=== PATIENT | female | born 1950 | race Caucasian/White ===

== ENCOUNTER 2021-02-06 11:06 | Emergency (ER) | payer MEDICARE, OTHER ==
[~2021-02-06] VITALS: Ht 167.6 cm; Wt 86.2 kg
[~2021-02-06 11:06] MED LIST: ASPI81CH PO; ATOR40TA PO; BUPR150ER PO; Budeprion Xl300 MG PO; CARV25 PO; CARV3.125 PO; CLON2 PO; ENOX120I SQ; FURO20 PO; Ferosul325 MG PO; HYDR1TAB94 PO; LISI5 PO; LOSA25 PO; LOSA50 PO; LOVA40; Plavix75 MG PO; VALS80 PO; VENL75ER PO; WARF5 PO
[2021-02-09] MEDS ORDERED: METO25ER PO (13:16)
[2021-02-09] MEDS ORDERED: LEVSOD25 PO (13:16)
[2021-02-09] MEDS ORDERED: Mirapex1 MG PO (13:22)
[2021-02-09] MEDS ORDERED: METF500C PO (13:22)
[2021-03-20] MEDS ORDERED: BUPR150ER PO (13:44)
[2021-03-20] MEDS ORDERED: VITAMIN D325 MC3 PO (13:44)
[2021-03-20] MEDS ORDERED: ATOR80 PO (13:44)
[2021-03-20] MEDS ORDERED: FERROUS SULFAT325 M3 PO (13:45)
[2021-03-20] MEDS ORDERED: FURO20 PO (13:45)
[2021-03-20] MEDS ORDERED: CLON1 PO (13:45)
[2021-03-20] MEDS ORDERED: CLOP75 PO (13:45)
[2021-03-20] MEDS ORDERED: LEVSOD25 PO (13:45)
[2021-03-20] MEDS ORDERED: Mirapex1 MG PO (13:46)
[2021-03-20] MEDS ORDERED: METO25ER PO (13:46)
== END 2021-02-06 13:33 | disposition home or self-care (01) ==
LOC: ER 11:06
DX: S01.81XA Laceration without foreign body of other part of head, initial encounter (principal); Z79.899 Other long term (current) drug therapy; Z79.02 Long term (current) use of antithrombotics/antiplatelets; Z91.09 Other allergy status, other than to drugs and biological substances; Z88.5 Allergy status to narcotic agent; Z88.8 Allergy status to other drugs, medicaments and biological substances; W01.198A Fall on same level from slipping, tripping and stumbling with subsequent striking against other object, initial encounter
CPT/HCPCS: 12011; 70450; 99283-25; A9270

== ENCOUNTER 2021-03-28 13:47 | Day surgery (SDC) | payer MEDICARE, OTHER ==
[~2021-03-28] VITALS: Ht 162.6 cm; Wt 86.7 kg
[~2021-03-28 13:47] MED LIST changes: +ATOR80 PO; +CLON1 PO; +CLOP75 PO; +FERROUS SULFAT325 M3 PO; +LEVSOD25 PO; +METF500C PO; +METO25ER PO; +Mirapex1 MG PO; +VITAMIN D325 MC3 PO
== END 2021-03-28 13:55 | disposition home or self-care (01) ==
LOC: ORSCSDS 13:47
PROVIDERS: Surgery
PROC: 0DBL8ZX Excision of Transverse Colon, Via Natural or Artificial Opening Endoscopic, Diagnostic (ICD-10-PCS; principal; 2021-03-28 13:00)
PROC: 0DBK8ZX Excision of Ascending Colon, Via Natural or Artificial Opening Endoscopic, Diagnostic (ICD-10-PCS; principal; 2021-03-28 13:00)
PROC: 0DBN8ZX Excision of Sigmoid Colon, Via Natural or Artificial Opening Endoscopic, Diagnostic (ICD-10-PCS; principal; 2021-03-28 13:00)
DX: D50.9 Iron deficiency anemia, unspecified (principal); K21.9 Gastro-esophageal reflux disease without esophagitis; D12.2 Benign neoplasm of ascending colon; D12.3 Benign neoplasm of transverse colon; D12.5 Benign neoplasm of sigmoid colon; Z86.010 Personal history of colon polyps; K44.9 Diaphragmatic hernia without obstruction or gangrene; K57.30 Diverticulosis of large intestine without perforation or abscess without bleeding; I51.81 Takotsubo syndrome; I10 Essential (primary) hypertension; E78.5 Hyperlipidemia, unspecified; Z86.73 Personal history of transient ischemic attack (TIA), and cerebral infarction without residual deficits; E03.9 Hypothyroidism, unspecified; N18.30 Chronic kidney disease, stage 3 unspecified; Z79.899 Other long term (current) drug therapy
CPT/HCPCS: 88305; 88312; 88342; J2704; J7120

== ENCOUNTER 2021-05-17 00:23 | Day surgery (SDC) | payer MEDICARE, OTHER | END 2021-05-17 23:24 | disposition home or self-care (01) | LOC: WOUND 00:23 | DX: L89.322 Pressure ulcer of left buttock, stage 2 (principal); L89.310 Pressure ulcer of right buttock, unstageable | CPT/HCPCS: A9270; G0463 ==

== ENCOUNTER 2021-05-24 01:21 | Day surgery (SDC) | payer MEDICARE, OTHER | END 2021-05-24 23:06 | disposition home or self-care (01) | LOC: WOUND 01:21 | DX: L89.311 Pressure ulcer of right buttock, stage 1 (principal) | CPT/HCPCS: A9270 ==

== ENCOUNTER 2021-06-12 02:39 | Day surgery (SDC) | payer MEDICARE, OTHER | END 2021-06-12 23:03 | disposition home or self-care (01) | LOC: WOUND 02:39 | DX: L89.312 Pressure ulcer of right buttock, stage 2 (principal); L89.322 Pressure ulcer of left buttock, stage 2 | CPT/HCPCS: A9270; G0463 ==

== ENCOUNTER 2021-06-26 05:46 | Day surgery (SDC) | payer MEDICARE, OTHER | END 2021-06-26 23:29 | disposition home or self-care (01) | LOC: WOUND 05:46 | DX: L89.312 Pressure ulcer of right buttock, stage 2 (principal); L89.322 Pressure ulcer of left buttock, stage 2 | CPT/HCPCS: G0463 ==

== ENCOUNTER 2021-07-11 03:18 | Day surgery (SDC) | payer MEDICARE, OTHER | END 2021-07-11 12:00 | disposition home or self-care (01) | LOC: WOUND 03:18 | DX: L89.312 Pressure ulcer of right buttock, stage 2 (principal) | CPT/HCPCS: G0463 ==

== ENCOUNTER 2023-03-27 15:43 | Inpatient (IN) | payer MEDICARE, OTHER ==
[~2023-03-27] VITALS: Ht 162.6 cm; Wt 70.0 kg
[2023-03-27 17:00] LABS: BASOPHILS ABSOLUTE AUTO 0.03 K/mm3 (0.00-0.23); BASOPHILS PERCENT AUTO 0 % (0-2); EOSINOPHILS ABSOLUTE AUTO 0.05 K/mm3 (0.00-0.68); EOSINOPHILS PERCENT AUTO 1 % (0-6); Hematocrit 37.1 % (33.0-51.0); Hemoglobin 12.2 g/dL (11.5-16.0); IMMATURE GRAN ABSOLUTE AUTO 0.02 K/mm3 (0.00-0.10); IMMATURE GRAN PERCENT AUTO 0 % (0-1); LYMPHOCYTES ABSOLUTE AUTO 1.02 K/mm3 (0.84-5.20); LYMPHOCYTES PERCENT AUTO 15 % (21-46); MONOCYTES ABSOLUTE AUTO 0.51 K/mm3 (0.16-1.47); MONOCYTES PERCENT AUTO 7 % (4-13); Mean Corpuscular HGB 31.4 pg (26.0-34.0); Mean Corpuscular HGB Conc 32.9 g/dL (31.5-36.5); Mean Corpuscular Volume 95 fL (80-100); Mean Platelet Volume 11.3 fL (9.1-12.4); NEUTROPHILS ABSOLUTE AUTO 5.26 K/mm3 (1.96-9.15); NEUTROPHILS PERCENT AUTO 76 % (41-73); Platelet Count 183 K/mm3 (150-400); RDW Coefficient Variation 14.2 % (11.7-14.2); RDW Standard Deviation 49.9 fL (35.1-46.3); Red Blood Cell Count 3.89 M/mm3 (3.80-5.20); White Blood Cell Count 6.89 K/mm3 (4.00-11.30)
[2023-03-27 17:16] LABS: Albumin, Blood 3.6 g/dL (3.4-5.0); Albumin/Globulin Ratio 1.1 (0.8-1.8); Bilirubin, Total 0.7 mg/dL (0.1-1.0); Bun/Creatinine Ratio 14.7 (12.0-20.0); Calcium, Blood 9.3 mg/dL (8.5-10.1); Creatinine, Blood 1.5 mg/dL (0.40-1.00); Globulin, Blood 3.3 g/dL (2.2-4.0); Potassium, Blood 3.7 mmol/L (3.5-5.5); Total Protein, Blood 6.9 g/dL (6.4-8.2)
[2023-03-27 19:36] LABS: Source, Urine Clean Catch
[2023-03-27 19:39] LABS: Bilirubin, Urine Neg (Neg); Blood, Urine 2+ (Neg); Glucose Qualitative, Urine 4+ (Neg); Ketones, Urine Neg (Neg); Leukocyte Esterase, Urine 3+ (Neg); Nitrite, Urine Neg (Neg); Protein, Urine 2+ (Neg); Urobilinogen, Urine NORM (Normal)
[2023-03-27 19:48] LABS: Appearance, Urine Hazy (Clear); Color, Urine Pale Yellow (P-Yellow)
[2023-03-27 19:50] LABS: Bacteria Mod /hpf; Hyaline Casts 0-2 /lpf (0-2); Squamous Epithelial Cells Few /hpf (Few)
[2023-03-27] MEDS ORDERED: ABILIFY MYCITE15 M2 PO (20:39)
[2023-03-27] MEDS ORDERED: Budeprion Xl300 MG PO (20:47)
[2023-03-27] MEDS ORDERED: Crestor40 MG PO (20:47)
[2023-03-27] MEDS ORDERED: FARXIGA10 MG PO (20:47)
[2023-03-27] MEDS ORDERED: Amlodipine Bes2.5 MG PO (20:47)
[2023-03-27] MEDS ORDERED: POTA10T PO (20:48)
[2023-03-27] MEDS ORDERED: LEVSOD25 PO (21:21)
[2023-03-27 21:35] VITALS: BP 134/70
[2023-03-28 04:22] VITALS: BP 96/55
--- NOTE | 2023-03-28 04:41 | NUR ---
SHIFT SUMMARY NO ACUTE CHANGES NOTED DURING SHIFT. PT ALERT AND ORIENTED, CALLS APPROPRIATELY. PT REMAISN ON RA, X 1 ASSIST. NO DEFECITS NOTED, PT STATES BACK TO BASELINE. PT PENDING MRI AND ECHO TODAY. NO C/O PAIN. WILL CONTINUE TO MONITOR. CALL LIGHT WITHIN REACH.
[2023-03-28 06:12] LABS: CHOL/HDL RATIO 1.9; Cholesterol 117 mg/dL (50-200); HDL Cholesterol 61 mg/dL (>39); LDL/HDL RATIO 0.8; Low Density Lipoprotein Chol 48 mg/dL (0-110); Triglycerides 41 mg/dL (30-160); Very Low Density Lipoprot Chol 8 mg/dL (6-32)
[2023-03-28 07:39] VITALS: BP 103/59
--- NOTE | 2023-03-28 09:00 | NUR ---
PT PLEASANT COOP A/O X3. H/R REG, NO MURMUR NOTED. PER TELE SINUS AT 69 WITH BBB AND PROLONGED QTC. SINCE ADMIT. CALLED DR FOR ORDERS - EKG ORDERED. LUNGS CLEAR, RESP EASY, UNLABORED. ON R/A. BT X4 LAST BM YEST. VOIDS 1 ASST TO BATHROOM. BED N LOW POSITION, ALL LITE IN REACH, CALLS APPRPOP PT STATES NO FLAMMABLE ITEMS IN ROOM.
[2023-03-28 14:34] LABS: Bun/Creatinine Ratio 14.7 (12.0-20.0); Calcium, Blood 9.2 mg/dL (8.5-10.1); Creatinine, Blood 1.43 mg/dL (0.40-1.00); Potassium, Blood 3.8 mmol/L (3.5-5.5)
[2023-03-28 15:30] VITALS: BP 108/55
--- NOTE | 2023-03-28 17:18 | NUR ---
PT PLEASANT TODAY. DID GO TO MRI THIS MIDDAY. DR ORDERED NEW EKG BASED ON PROLONGED QTC. NO NEW ORDERS. PENDING ECHO. PT TO STAY TONITE FOR SURE PER DR. ENGLAND. CBG THIS LUNCH WAS 155, PT DENIED INSULIN. SPOKE TO HER THIS KELLY, IS 169. SHE JUST DRANK SPECIAL COFFEE FROM [employer]. IT LOOKS LIKE SUGARY DRINK. PT AGREES GTO TAKE 1U INSULIN. STATES NOT LIKING NEEDLES. NO OTHER CONCERNS NOTED. BED IN LOW POSITION, CALL LITE IN REACH, CALLS APPROP
[2023-03-28 19:16] VITALS: BP 85/50
[2023-03-29 00:28] VITALS: BP 96/50
--- NOTE | 2023-03-29 04:17 | NUR ---
SHIFT SUMMARY PT ALERT AND ORIENTED. PT WITH INTERMITTENT CONFUSION, REDIRECTABLE. PT REMAINS ON RA, X 1 ASSIST WITH FWW TO BATHROOM. PT PENDING ECHO. EPISODE OF HYPOTENSION NOTED, HOSPITALIST NOTIFIED AND ORDERS FOR 500 ML BOLUS ORDERED. NO C/O PAIN. WILL CONTINUE TO MONITOR .CALL LIGHT WITHIN REACH.
[2023-03-29 04:24] VITALS: BP 97/57
[2023-03-29 07:42] VITALS: BP 95/50
--- NOTE | 2023-03-29 13:23 | NUR ---
ECHO IN ROOM NOW
[2023-03-29 16:34] VITALS: BP 92/58
--- NOTE | 2023-03-29 18:43 | NUR ---
ALERT AND ORIENTED, SLOW AT TIMES TO RESPOND, PATIENT TO STAY ANOTHER NIGHT AND DISCHARGE TOMORROW, CASE MANAGEMENT AND DR ENGLAND DISCUSSED CARE OPTIONS WITH PATIENT AND SON NETO, PATIENT REPORTS BEING HAPPY WITH PT/OR, ECHO WAS DONE, MAP 65, CALL LIGHT WITH IN REACH, WILL RELAY TO PM RN
[2023-03-29 19:35] VITALS: BP 90/42
--- NOTE | 2023-03-29 21:00 | NUR ---
CALLED BOBBY LOSS PREVENTION/SAFETY DISTRICT MANAGER REGARDING PTS BLOOD PRESSURE OF 90/42-MAP OF 58. PER BOBBY LOSS PREVENTION/SAFETY DISTRICT MANAGER GIVE 500ML BOLUS OF NS AND RECHECK B/P WHEN BOLUS IS COMPLETE.
[2023-03-29 22:52] VITALS: BP 96/56
[2023-03-30 03:38] VITALS: BP 107/52
--- NOTE | 2023-03-30 04:45 | NUR ---
SHIFT SUMMARY; PT WAS HYPOTENSIVE AT THE BEGINNING OF SHIFT, BUT AFTER A 1 TIME BOLUS OF 500MLS WAS ADMIISTERED THE PTS B/P CAME UP. NO OTHER ACUTE CHANGES OVERNIGHT. THE PT IS AXO X3 AND A 1 ASSIST W/ A FWW. TELE IS IN PLACE, NSR IN THE 70'S. THE PT HAS BEEN SLEEPING FOR THE MAJORITY OF THE NIGHT. THE PT DENIES ANY PAIN, SOB, CHEST PAIN/PRESSURE OR N/V. CURRENTLY THE PT IS SLEEPING IN BED WITH THE BED IN THE LOWEST POSITION AND THE CALL LIGHT AT BEDSIDE.
[2023-03-30 07:52] VITALS: BP 83/52
[2023-03-30] MEDS ORDERED: Aspir 8181 MG PO (10:23)
[2023-03-30 10:33] VITALS: BP 107/58
[2023-03-30] MEDS ORDERED: VISBIOME 112.51 EACH PO (10:38)
[2023-03-30] MEDS ORDERED: FURO20 PO (11:14)
== END 2023-03-30 14:23 | disposition home health service (06) | DRG 69 ==
LOC: ER 15:43 → MEDS 15:44
PROVIDERS: Emergency Medicine; Internal Medicine; Nurse Practitioner Acute Care; Student in an Organized Health Care Education/Training Program; ADMIT Student in an Organized Health Care Education/Training Program
DX: G45.9 Transient cerebral ischemic attack, unspecified (principal); E78.5 Hyperlipidemia, unspecified; E03.9 Hypothyroidism, unspecified; G25.81 Restless legs syndrome; I12.9 Hypertensive chronic kidney disease with stage 1 through stage 4 chronic kidney disease, or unspecified chronic kidney disease; N18.30 Chronic kidney disease, stage 3 unspecified; F03.A0 Unspecified dementia, mild, without behavioral disturbance, psychotic disturbance, mood disturbance, and anxiety; E11.22 Type 2 diabetes mellitus with diabetic chronic kidney disease; R29.6 Repeated falls; F32.A Depression, unspecified; Z88.8 Allergy status to other drugs, medicaments and biological substances; Z88.5 Allergy status to narcotic agent; Z79.899 Other long term (current) drug therapy; Z79.890 Hormone replacement therapy; Z90.89 Acquired absence of other organs; Z98.891 History of uterine scar from previous surgery; Z98.890 Other specified postprocedural states; Z79.82 Long term (current) use of aspirin; Z79.02 Long term (current) use of antithrombotics/antiplatelets
CPT/HCPCS: 36415; 70450; 70551; 71045; 80048; 80053; 80061; 81001; 82947; 83036; 83880; 84484; 85025; 87086; 93005; 93010; 93306; 93880; 97112; 97116; 97162; 97166; 97530; 97530-CQ; 97535; 99285-25; A9270; G0378; J7030; J7040

== ENCOUNTER 2024-06-14 04:59 | Emergency (ER) | payer MEDICARE, OTHER ==
[~2024-06-14] VITALS: Ht 162.6 cm; Wt 86.2 kg
[~2024-06-14 04:59] MED LIST changes: +ABILIFY MYCITE15 M2 PO; +Amlodipine Bes2.5 MG PO; +Aspir 8181 MG PO; +Crestor40 MG PO; +FARXIGA10 MG PO; +POTA10T PO; +VISBIOME 112.51 EACH PO
[2024-06-14] MEDS ORDERED: Diphth,Pertuss(Acell),Tet Vac 0.5 ML VIAL IM ONE (05:35)
[2024-06-14 06:42] VITALS: BP 110/56
== END 2024-06-14 08:30 | disposition home or self-care (01) ==
LOC: ER 04:59
DX: S01.81XA Laceration without foreign body of other part of head, initial encounter (principal); S06.0XAA Concussion with loss of consciousness status unknown, initial encounter; S81.802A Unspecified open wound, left lower leg, initial encounter; E11.22 Type 2 diabetes mellitus with diabetic chronic kidney disease; N18.30 Chronic kidney disease, stage 3 unspecified; E78.5 Hyperlipidemia, unspecified; E03.9 Hypothyroidism, unspecified; I13.10 Hypertensive heart and chronic kidney disease without heart failure, with stage 1 through stage 4 chronic kidney disease, or unspecified chronic kidney disease; G25.81 Restless legs syndrome; I42.8 Other cardiomyopathies; Z88.8 Allergy status to other drugs, medicaments and biological substances; Z88.5 Allergy status to narcotic agent; Z91.048 Other nonmedicinal substance allergy status; Z79.82 Long term (current) use of aspirin; Z79.890 Hormone replacement therapy; Z79.899 Other long term (current) drug therapy; Z79.01 Long term (current) use of anticoagulants; R44.1 Visual hallucinations; W07.XXXA Fall from chair, initial encounter; W18.30XA Fall on same level, unspecified, initial encounter
CPT/HCPCS: 12014; 70450; 80053; 85025; 90471; 90715; 99284; 99284-25

== ENCOUNTER 2024-06-22 04:01 | Day surgery (SDC) | payer MEDICARE, OTHER ==
[2024-06-22] MEDS ORDERED: Triamcinolone Acet 0.1% Cream 15 gm ONE (13:30)
== END 2024-06-23 23:14 | disposition home or self-care (01) ==
LOC: WOUND 04:01
DX: L97.822 Non-pressure chronic ulcer of other part of left lower leg with fat layer exposed (principal); S81.802D Unspecified open wound, left lower leg, subsequent encounter; I10 Essential (primary) hypertension; I73.9 Peripheral vascular disease, unspecified; I87.2 Venous insufficiency (chronic) (peripheral); Z88.5 Allergy status to narcotic agent; Z88.8 Allergy status to other drugs, medicaments and biological substances; X58.XXXD Exposure to other specified factors, subsequent encounter
CPT/HCPCS: A9270; G0463

== ENCOUNTER 2024-06-24 02:34 | Day surgery (SDC) | payer MEDICARE, OTHER ==
[2024-06-24] MEDS ORDERED: Triamcinolone Acet 0.1% Cream 15 gm ONE (12:47)
== END 2024-06-24 23:23 | disposition home or self-care (01) ==
LOC: WOUND 02:34
DX: L97.822 Non-pressure chronic ulcer of other part of left lower leg with fat layer exposed (principal); I10 Essential (primary) hypertension; I73.9 Peripheral vascular disease, unspecified; I87.2 Venous insufficiency (chronic) (peripheral)
CPT/HCPCS: A9270

== ENCOUNTER 2024-07-01 04:34 | Day surgery (SDC) | payer MEDICARE, OTHER | END 2024-07-01 23:00 | disposition home or self-care (01) | LOC: WOUND 04:34 | DX: L97.822 Non-pressure chronic ulcer of other part of left lower leg with fat layer exposed (principal); I11.0 Hypertensive heart disease with heart failure; I50.9 Heart failure, unspecified; I73.9 Peripheral vascular disease, unspecified; I87.2 Venous insufficiency (chronic) (peripheral) | CPT/HCPCS: G0463 ==

== ENCOUNTER 2025-02-05 18:12 | Emergency (ER) | payer MEDICARE, OTHER ==
[~2025-02-05] VITALS: Ht 162.6 cm; Wt 90.7 kg
[2025-02-05 19:17] LABS: BASOPHILS ABSOLUTE AUTO 0.03 K/mm3 (0.00-0.23); BASOPHILS PERCENT AUTO 1 % (0-2); EOSINOPHILS ABSOLUTE AUTO 0.22 K/mm3 (0.00-0.68); EOSINOPHILS PERCENT AUTO 4 % (0-6); Hematocrit 36.4 % (33.0-51.0); Hemoglobin 11.7 g/dL (11.5-16.0); IMMATURE GRAN ABSOLUTE AUTO 0.01 K/mm3 (0.00-0.10); IMMATURE GRAN PERCENT AUTO 0 % (0-1); LYMPHOCYTES ABSOLUTE AUTO 1.08 K/mm3 (0.84-5.20); LYMPHOCYTES PERCENT AUTO 18 % (21-46); MONOCYTES ABSOLUTE AUTO 0.49 K/mm3 (0.16-1.47); MONOCYTES PERCENT AUTO 8 % (4-13); Mean Corpuscular HGB Conc 32.1 g/dL (31.5-36.5); Mean Corpuscular Volume 90 fL (80-100); NEUTROPHILS ABSOLUTE AUTO 4.31 K/mm3 (1.96-9.15); NEUTROPHILS PERCENT AUTO 70 % (41-73); Platelet Count 291 K/mm3 (150-400); RDW Coefficient Variation 14.8 % (11.7-14.2); RDW Standard Deviation 49.3 fL (35.1-46.3); Red Blood Cell Count 4.04 M/mm3 (3.80-5.20); White Blood Cell Count 6.14 K/mm3 (4.00-11.30)
[2025-02-05 19:40] LABS: Albumin, Blood 3.1 g/dL (3.4-5.0); Albumin/Globulin Ratio 0.7 (0.8-1.8); Bilirubin, Total 0.4 mg/dL (0.1-1.0); Bun/Creatinine Ratio 18.5 (12.0-20.0); Creatinine, Blood 1.19 mg/dL (0.40-1.00); Globulin, Blood 4.3 g/dL (2.2-4.0); Potassium, Blood 4.5 mmol/L (3.5-5.5); Total Protein, Blood 7.4 g/dL (6.4-8.2)
[2025-02-06 02:55] VITALS: BP 124/64
== END 2025-02-06 03:10 | disposition home or self-care (01) ==
LOC: ER 18:12
PROVIDERS: Student in an Organized Health Care Education/Training Program
DX: R00.2 Palpitations (principal); R42 Dizziness and giddiness; I10 Essential (primary) hypertension; E78.5 Hyperlipidemia, unspecified; I12.9 Hypertensive chronic kidney disease with stage 1 through stage 4 chronic kidney disease, or unspecified chronic kidney disease; N18.30 Chronic kidney disease, stage 3 unspecified; E11.22 Type 2 diabetes mellitus with diabetic chronic kidney disease; Z59.89 Other problems related to housing and economic circumstances; Z79.899 Other long term (current) drug therapy; Z79.890 Hormone replacement therapy; Z79.82 Long term (current) use of aspirin; Z88.5 Allergy status to narcotic agent; Z88.8 Allergy status to other drugs, medicaments and biological substances
CPT/HCPCS: 71046; 71260; 80053; 83880; 84443; 84484; 85025; 85379; 93005; 93010; 99285-25; Q9967